=== PATIENT | female | born 1980 | race Caucasian/White ===

== ENCOUNTER 2016-09-03 18:20 | Observation (INO) | payer OTHER ==
[2016-09-03 18:39] LABS: URINE BILIRUBIN 1+ (NEGATIVE); URINE BLOOD Negative (NEGATIVE); URINE GLUCOSE (UA) Negative (NEGATIVE); URINE KETONE 1+ (NEGATIVE); URINE LEUK ESTERASE Negative (NEGATIVE); URINE NITRITE Negative (NEGATIVE); URINE UROBILINOGEN 1.0 E.U/dl (0.2-1.0)
[2016-09-03 18:40] LABS: URINE APPEARANCE CLOUDY; URINE COLOR YELLOW; URINE PROTEIN 1+ (NEGATIVE)
[2016-09-03 18:45] LABS: URINE BACTERIA FEW /hpf (NEGATIVE); URINE WBC 0-2 (3-5)
--- NOTE | 2016-09-03 19:19 | PDOC ---
History of Present Illness - General History Source: Patient, Spouse Exam Limitations: No Limitations - History of Present Illness Initial Comments: 09/03/16 19:37 The patient is a 36 year old female, with a significant past medical history of hypertension, who presents to the emergency department with intermittent abdominal pain for the past week. The patient reports subjective fevers, nausea and diarrhea over the same time period. The patient reports at least two episodes of diarrhea per day. The patient additionally reports a headache and sinus pressure. The patient denies chills, vomiting, constipation or dysuria. The patient denies any recent illnesses, antibiotics or any recent travel. The patients is at the bedside. PAST MEDICAL HISTORY: See HPI. PAST SURGICAL HISTORY: Tonsillectomy, Cholecystectomy, x 2, Tubal Ligation. FAMILY HISTORY: No pertinent history. SOCIAL HISTORY: Patient lives with family and is employed. MEDICATIONS: Reviewed. ALLERGIES: As per nursing notes. Adult ROS: General: +Fevers. No chills, no weakness, no weight loss. HEENT: +Sinus pressure. No change in vision. No sore throat. No ear pain. CardioVascular: No chest pain or shortness of breath. Respiratory: No cough, or wheezing. Gastrointestinal: +Abdominal pain, nausea, diarrhea. No vomiting or constipation , no rectal bleeding. Genitourinary: No dysuria, hematuria, or frequency. Musculoskeletal: No joint or muscle pain or swelling. Neurologic: +Headache. No vertigo, dizziness or loss of consciousness. Psychiatric: No depression. Skin: No rashes or easy bruising. Endocrine: No increased thirst or abnormal weight change. Allergic: No skin or latex allergy. All other systems reviewed and normal. Adult Physical Exam: General: Well-nourished, well-developed individual, uncomfortable appearing. HEENT: Tenderness on palpation of the frontal and maxillary sinuses bilaterally. Throat: Normal, tonsils normal, no erythema or exudate. Neck: Supple, no meningeal signs, no lymphadenopathy. Eyes: Pupils equal reactive and round, extraocular motion intact. Chest: Nontender to palpation. Cardiac: Mild tachycardia. S1-S2 normal, no murmurs rubs or gallops. Respiratory: Lungs clear to auscultation bilateral. Abdomen: Soft, nondistended. Decreased bowel sounds. Tenderness to palpation of the LLQ, no guarding, no rebound. Extremities: Warm, dry, no cyanosis, clubbing, or edema. Skin: No rashes. Neuro: Alert and oriented x3, nonfocal exam, grossly intact, normal gait. Psych: Normal mood and affect. <Tianna Huerta - Last Filed: 09/03/16 19:37> - General History Source: Patient Exam Limitations: No Limitations - History of Present Illness Initial Comments: 09/03/16 23:09 A portion of this note was documented by scribe services under my direction. I have reviewed the details of the note, within reason, and agree with the documentation. The case summary and management plan written by me. Assessment and plan: This is a 36-year-old female who comes in complaining of diarrhea 1 week. In addition to the diarrhea she complained of pain in the area of her frontal and maxillary sinuses times several days. Patient said she is also unable to tolerate by mouth secondary to every time she eats it precipitates diarrhea and abdominal pain and cramping. Patient on arrival was moderately dehydrated and was hydrated with IV normal saline initially and then switched to normal saline with potassium as her potassium came back at 2.8. Patient had an EKG that was negative for any ST T wave changes or any acute changes. It did show an old possible septal infarct otherwise was normal Patient had a CAT scan of her sinuses, that showed a pansinusitis of the frontal , maxillary and ethmoid sinuses Suspect that there is a chronic component to her acute sinusitis. Patient had a CAT scan of her abdomen and pelvis which showed no acute intra- abdominal pathology was negative for any diverticulitis, perforation ordered colitis. It did show a small probable ovarian cyst in the pelvis. Patient is unable to tolerate by mouth's at this time and needs potassium replacement. Patient will be admitted to an observation bed for potassium replacement, continued rehydration and monitoring. <Ambar Fernández I - Last Filed: 09/03/16 23:19> - General Chief Complaint: Diarrhea Stated Complaint: DIARRHEA X 1 WEEK Time Seen by Provider: 09/03/16 19:15 Past History <Tianna Huerta - Last Filed: 09/03/16 19:37> - Surgical History Cholecystectomy: Yes - Psycho/Social/Smoking Cessation Hx Anxiety: No Suicidal Ideation: No Smoking History: Never smoked Hx Alcohol Use: No Drug/Substance Use Hx: No Substance Use Type: None <Ambar Fernández I - Last Filed: 09/03/16 23:19> - Past Medical History Allergies/Adverse Reactions: Allergies Allergy/AdvReac Type Severity Reaction Status Date / Time No Known Allergies Allergy Verified 09/03/16 18:23 Home Medications: Ambulatory Orders Amlodipine Besylate 5 mg PO DAILY 09/03/16 Trazodone HCl 100 mg PO HS 09/03/16 *Physical Exam - Vital Signs Last Vital Signs Temp Pulse Resp BP Pulse Ox 98.9 F 106 H 15 152/115 98 09/03/16 18:21 09/03/16 18:21 09/03/16 18:21 09/03/16 18:21 09/03/16 18:21 <Tianna Huerta - Last Filed: 09/03/16 19:37> - Vital Signs Last Vital Signs Temp Pulse Resp BP Pulse Ox 98.9 F 106 H 15 152/115 98 09/03/16 18:21 09/03/16 18:21 09/03/16 18:21 09/03/16 18:21 09/03/16 18:21 <Ambar Fernández I - Last Filed: 09/03/16 23:19> ED Treatment Course - LABORATORY CBC & Chemistry Diagram: 09/03/16 18:56 09/03/16 18:56 - ADDITIONAL ORDERS Additional order review: Laboratory Results 09/03/16 18:35 Urine Color Yellow Urine Appearance Cloudy Urine pH 6.0 Ur Specific [place] 1.025 Urine Protein 1+ H Urine Glucose (UA) Negative Urine Ketones 1+ H Urine Blood Negative Urine Nitrite Negative Urine Bilirubin 1+ H Urine Urobilinogen 1.0 e.u/dl Ur Leukocyte Esterase Negative Urine RBC 2-3 Urine WBC 0-2 Ur Epithelial Cells Few Urine Bacteria Few Urine HCG, Qual Negative <Tianna Huerta - Last Filed: 09/03/16 19:37> - LABORATORY CBC & Chemistry Diagram: 09/03/16 18:56 09/03/16 18:56 - ADDITIONAL ORDERS Additional order review: Laboratory Results 09/03/16 18:35 Urine Color Yellow Urine Appearance Cloudy Urine pH 6.0 Ur Specific [place] 1.025 Urine Protein 1+ H Urine Glucose (UA) Negative Urine Ketones 1+ H Urine Blood Negative Urine Nitrite Negative Urine Bilirubin 1+ H Urine Urobilinogen 1.0 e.u/dl Ur Leukocyte Esterase Negative Urine RBC 2-3 Urine WBC 0-2 Ur Epithelial Cells Few Urine Bacteria Few Urine HCG, Qual Negative <Ambar Fernández I - Last Filed: 09/03/16 23:19> *DC/Admit/Observation/Transfer - Attestations Scribe Attestion: 09/03/16 19:20 Documentation prepared by Tianna Huerta, acting as medical center director for Ambar Fernández MD. <Tianna Huerta - Last Filed: 09/03/16 19:37> - Discharge Dispostion Admit: Yes <Ambar Fernández I - Last Filed: 09/03/16 23:19> Diagnosis at time of Disposition: Dehydration, Hypokalemia due to loss of potassium Diarrhea Qualifiers: Diarrhea type: unspecified type Qualified Code(s): R19.7 - Diarrhea, unspecified Abdominal pain Qualifiers: Abdominal location: generalized Qualified Code(s): R10.84 - Generalized abdominal pain Acute sinusitis Qualifiers: Sinusitis location: pansinusitis Recurrence: recurrent Qualified Code(s): J01.41 - Acute recurrent pansinusitis - Discharge Dispostion Condition at time of disposition: Good - Referrals Referrals: Pasquale Bueno MD [Primary Care Provider] -
[2016-09-03 19:20] LABS: BASOPHIL 0.6 % (0-2.0); EOSINOPHIL 0.5 % (0-4.5); MCH 26.9 pg (25.7-33.7); MCHC 33.6 g/dl (32.0-36.0); MEAN PLT VOLUME 8.9 fl (7.5-11.1); NEUTROPHILS 66.4 % (42.8-82.8); PLATELET COUNT 393 K/MM3 (134-434); RDW 13.6 % (11.6-15.6)
[2016-09-03] MEDS ORDERED: ONDANSETRON 4 MG/2 ML VIAL IVPB ONE (19:26)
[2016-09-03] MEDS ORDERED: SODIUM CHLORIDE 1,000 ML IV ONE (19:26)
[2016-09-03] MEDS ORDERED: morphine CARPU-JECT 4 MG/1 ML DISP.SYRIN IVPUSH ONE (19:26)
[2016-09-03 19:28] LABS: ALK PHOS 70 U/L (32-92); ANION GAP 9 (8-16); CO2 27 mmol/L (22-28); CREATININE 0.6 mg/dl (0.6-1.3); GLUCOSE,RANDOM 99 mg/dl (74-106); MAGNESIUM 1.8 mg/dL (1.8-2.4); SGOT/AST 24 U/L (10-42); SGPT/ALT 21 U/L (10-40); TOT PROT 7.4 g/dl (6.4-8.3)
[2016-09-03] MEDS ORDERED: ONDANSETRON 4 MG/2 ML VIAL ONE (19:34)
[2016-09-03] MEDS ORDERED: morphine CARPU-JECT 10 MG/1 ML DISP.SYRIN ONE (19:34)
[2016-09-03 19:36] LABS: BILIRUBIN,TOTAL 0.4 mg/dl (0.2-1.0)
[2016-09-03] MEDS ORDERED: FAMOTIDINE 20 MG/50 ML IVPB 50 ML IVPB ONE ×2 (20:05→20:06)
[2016-09-03] MEDS ORDERED: POTASSIUM CHLORIDE 20 MEQ in SODIUM CHLORIDE 1,000 ML IVPB SCH ×2 (20:15→23:45)
[2016-09-03] MEDS ORDERED: MAG HYDROX/AL HYDROX/SIMETH 30 ML UNIT-DOSE CUP PO ONE (22:39)
[2016-09-03] MEDS ORDERED: MAG HYDROX/AL HYDROX/SIMETH 30 ML UNIT-DOSE CUP ONE (22:40)
[2016-09-03] MEDS ORDERED: PIPERACILLIN/TAZOB 3.375 GM/50 ML PRE-DOCKED IVPB STA (23:00)
[2016-09-03] MEDS ORDERED: CEFTRIAXONE 1 GM in DEXTROSE 5%-WATER - 50 ML IVPB ONE (23:24)
[2016-09-03] MEDS ORDERED: cefTRIAXone SODIUM 1 GM VIAL ONE (23:32)
--- NOTE | 2016-09-04 00:06 | HP ---
CHIEF COMPLAINT: abdominal pain, diarrhea PCP: [facility] HISTORY OF PRESENT ILLNESS: This is a 36 year old female with a past medical history of hypertension, depression who presented with intermittent abdominal pain x 7 days associated with diarrhea. Initially the diarrhea was very frequent to the point that the pt felt she was unable to leave her bathroom but has slowly decreased in frequency. She reports currently having about 2 episodes per day. She has also had nausea and even drinking water causes her stomach to hurt. Upon exam, pt reports feeling better with decreased abdominal pain. She denies any further episodes of diarrhea. She also reports headache and sinus pressure for about one week. Pt denies any recent travel or antibiotic use. ER course was notable for: (1) Potassium 2.8 (2) CT abd pelvis no acute findings (3) CT sinuses: boyer sinusitis Recent Travel: pt denies PAST MEDICAL HISTORY: HTN depression PAST SURGICAL HISTORY: T&A cholecystectomy x 2 tubal ligation Social History: Smoking: pt denies Alcohol: occ, none in over 3 months Drugs: pt denies Family History: mother alive with HTN, DM, irreg heart beat father alive, no medical problems half sister with myasthenia gravis and HTN Allergies No Known Allergies Allergy (Verified 09/03/16 18:23) HOME MEDICATIONS: 3 Medication Instructions Recorded Amlodipine Besylate 5 mg PO DAILY 09/03/16 Trazodone HCl 100 mg PO HS 09/03/16 REVIEW OF SYSTEMS CONSTITUTIONAL: Absent: fever, chills, diaphoresis, generalized weakness, malaise, loss of appetite, weight change HEENT: Present: sinus pressure Absent: rhinorrhea, nasal congestion, throat pain, throat swelling, difficulty swallowing, mouth swelling, ear pain, eye pain, visual changes CARDIOVASCULAR: Absent: chest pain, syncope, palpitations, irregular heart rate, lightheadedness , peripheral edema RESPIRATORY: Absent: cough, shortness of breath, dyspnea with exertion, orthopnea, wheezing, stridor, hemoptysis GASTROINTESTINAL: Present: abdominal pain, nausea, diarrhea Absent: abdominal distension, vomiting, constipation, melena, hematochezia GENITOURINARY: Absent: dysuria, frequency, urgency, hesitancy, hematuria, flank pain, genital pain MUSCULOSKELETAL: Absent: myalgia, arthralgia, joint swelling, back pain, neck pain SKIN: Absent: rash, itching, pallor HEMATOLOGIC/IMMUNOLOGIC: Absent: easy bleeding, easy bruising, lymphadenopathy, frequent infections ENDOCRINE: Absent: unexplained weight gain, unexplained weight loss, heat intolerance, cold intolerance NEUROLOGIC: Present: headache Absent: focal weakness or paresthesias, dizziness, unsteady gait, seizure, mental status changes, bladder or bowel incontinence PSYCHIATRIC: Absent: anxiety, depression, suicidal or homicidal ideation, hallucinations. PHYSICAL EXAMINATION Vital Signs - 24 hr 3 09/04/16 00:05 Temperature 99.1 F Pulse Rate [ 86 Apical] Blood Pressure 132/90 [Left Arm] O2 Sat by Pulse 95 Oximetry (%) GENERAL: Awake, alert, and fully oriented, in no acute distress. HEAD: Normal with no signs of trauma. EYES: Pupils equal, round and reactive to light, extraocular movements intact, sclera anicteric, conjunctiva clear. No lid lag. EARS, NOSE, THROAT: Ears normal, nares patent, oropharynx clear without exudates. Moist mucous membranes. + pain with tapping over maxillary sinuses, minimal tenderness over frontal sinuses NECK: Normal range of motion, supple without lymphadenopathy, JVD, or masses. LUNGS: Breath sounds equal, clear to auscultation bilaterally. No wheezes, and no crackles. No accessory muscle use. HEART: Regular rate and rhythm, normal S1 and S2 without murmur, rub or gallop. ABDOMEN: Soft, nontender, not distended, normoactive bowel sounds, no guarding, no rebound, no masses. No hepatomegaly or splenomegaly. MUSCULOSKELETAL: Normal range of motion at all joints. No bony deformities or tenderness. No CVA tenderness. UPPER EXTREMITIES: 2+ pulses, warm, well-perfused. No cyanosis. No clubbing. No peripheral edema. LOWER EXTREMITIES: 2+ pulses, warm, well-perfused. No calf tenderness. No peripheral edema. NEUROLOGICAL: Cranial nerves II-XII intact. Normal speech. Normal gait. PSYCHIATRIC: Cooperative. Good eye contact. Appropriate mood and affect. SKIN: Warm, dry, normal turgor, no rashes or lesions noted, normal capillary refill. Laboratory Results - last 24 hr 3 09/03/16 09/03/16 09/03/16 09/03/16 18:35 18:56 18:56 21:14 WBC 7.0 RBC 5.28 H Hgb 14.2 D Hct 42.2 MCV 80.0 MCHC 33.6 RDW 13.6 Plt Count 393 MPV 8.9 Neutrophils % 66.4 Lymphocytes % 20.3 D Monocytes % 12.2 H D Eosinophils % 0.5 D Basophils % 0.6 Sodium 135 L Potassium 2.8 L* D Chloride 99 Carbon Dioxide 27 Anion Gap 9 BUN 8 Creatinine 0.6 Creat Clearance w eGFR > 60 Random Glucose 99 Lactic Acid 0.679 Calcium 9.0 Magnesium 1.8 Total Bilirubin 0.4 AST 24 ALT 21 D Alkaline Phosphatase 70 Total Protein 7.4 Albumin 4.0 Urine Color Yellow Urine Appearance Cloudy Urine pH 6.0 Ur Specific [place] 1.025 Urine Protein 1+ H Urine Glucose (UA) Negative Urine Ketones 1+ H Urine Blood Negative Urine Nitrite Negative Urine Bilirubin 1+ H Urine Urobilinogen 1.0 e.u/dl Ur Leukocyte Esterase Negative Urine RBC 2-3 Urine WBC 0-2 Ur Epithelial Cells Few Urine Bacteria Few Urine HCG, Qual Negative CT abd/pelvis: Visualized lung base appears unremarkable and the heart is within normal limits in size. Evaluation of the liver, spleen, pancreas, both adrenal glands and both kidneys appear unremarkable. Postcholecystectomy surgical metallic clips are present. Both kidneys are normally enhanced without evidence of hydronephrosis or stones, bilaterally. There is no evidence of small bowel obstruction or enlarged retroperitoneal lymph nodes. The terminal ileum and appendix appear unremarkable. Normal stool burden in the colon without wall thickening. No gross diverticula or evidence of colitis/ diverticulitis is identified. The uterus is within normal limits in size. There is an approximately 2.5 cm low-attenuation density in the left adnexa. Similar findings on the right compatible with ovaries/follicles. Partially distended urinary bladder without wall thickening. Perirectal and pericecal fat is clear. Visualized osseous structures appear intact with straightening of the lumbar spine Impression: Poor oral contrast opacification is limiting this exam. There is no oral contrast in the colon. There is no gross evidence of acute diverticulitis/ colitis. Small focal low-attenuation density in the right and left adnexa compatible with the ovaries with probable small follicles. No free air or free fluid in the abdomen and pelvis. CT scan of the paranasal sinuses without intravenous contrast. Coronal and sagittal reconstruction images were obtained. The sphenoid sinus and ethmoid air cells are essentially totally opacified. Partially opacified hypoplastic frontal sinus. Both maxillary antra are almost totally opacified with suggestion of an air-fluid level on the right. There is mild to moderate deviation of the nasal septum to the left. There is obstruction of the ostiomeatal unit, frontoethmoidal and sphenoethmoidal recess, bilaterally. Both orbits appear unremarkable. Included intracranial contents appear unremarkable. Included upper neck and airway appears unremarkable except for suggestion of partially included enlarged tonsils. Correlate clinically. Impression: Pansinusitis ASSESSMENT/PLAN: 36yF with PMH HTN, depression presented to the ED for abdominal pain with diarrhea and headache with sinus pressure. She was noted to be hypokalemic in ED. She is being admitted for observation. hypokalemia - likely due to diarrhea - given 20mEq KCl in 1L NS in ED - Now tolerating water PO, will give 40mEq po now and repeat labs in am. diarrhea - if any further episodes will send for stool studies Boyer sinusitis - ceftriaxone 1g in ED, cont same, convert to po upon DC, recommend outpatient ENT f/u DVT PPX - chemoprophylaxis deferred as anticipated LOS < 48h FEN - NS w/ 20mEq KCl @ 200cc/hr x 1 more liter - replete K, repeat in am - regular, lactose free diet in am Dispo: Pt currently requires inpatient observation of her emergent condition. Visit type - Emergency Visit Emergency Visit: Yes ED Registration Date: 09/03/16 Care time: The patient presented to the Emergency Department on the above date and was hospitalized for further evaluation of their emergent condition. - New Patient This patient is new to me today: Yes Date on this admission: 09/03/16 - Critical Care Critical Care patient: No
[2016-09-04] MEDS ORDERED: POTASSIUM CHLORIDE TABS 20 MEQ TABLET.ER (FP) PO ONE ×2 (00:30→09:00)
[2016-09-04] MEDS ORDERED: traZODone HCL 50 MG TABLET (FP) ONE (00:49)
[2016-09-04] MEDS: traZODone HCL 100 MG TABLET (FP) PO SCH ×2 (01:14→06:09)
[2016-09-04 01:59] VITALS: BMI 37.3
[2016-09-04 07:57] LABS: BASOPHIL 0.4 % (0-2.0); EOSINOPHIL 0.8 % (0-4.5); MCH 27.2 pg (25.7-33.7); MCHC 33.4 g/dl (32.0-36.0); MEAN CELL VOLUME 81.4 fl (80-96); MEAN PLT VOLUME 8.8 fl (7.5-11.1); NEUTROPHILS 64.7 % (42.8-82.8); PLATELET COUNT 285 K/MM3 (134-434); RDW 13.9 % (11.6-15.6); WHITE BLOOD COUNT 6.1 K/mm3 (4.0-10.0)
[2016-09-04 08:16] LABS: ANION GAP 7 (8-16); CALCIUM 8.1 mg/dl (8.4-10.2); CO2 26 mmol/L (22-28); CREATININE 0.6 mg/dl (0.6-1.3); GLUCOSE,RANDOM 95 mg/dl (74-106); MAGNESIUM 1.8 mg/dL (1.8-2.4)
[2016-09-04] MEDS: amLODIPine BESYLATE 5 MG TABLET (FP) PO SCH (10:21)
[2016-09-04] MEDS: DEXTROSE IVPB SCH ×2 (10:52→23:50)
[2016-09-04] MEDS: POTASSIUM CHLORIDE IVPB SCH ×2 (10:52→23:50)
[2016-09-04] MEDS: [UNRECOGNIZED DRUG - OTHER] IVPB SCH ×2 (10:52→23:50)
--- NOTE | 2016-09-04 12:27 | PN ---
Physical Exam: SUBJECTIVE: Patient seen and examined, patient reports ongoing abdominal cramping 4 episodes of loose stool since early this a.m. unable to tolerate soft diet OBJECTIVE: patient is a 36 year old female with a past medical history of hypertension and depression. patient was admitted from the emergency department for emergent condition Vital Signs Period Temp Pulse Resp BP Sys/Taylor Pulse Ox Last 24 Hr 98.1 F-99.1 F 84-94 18-19 132-147/77-94 94-95 GENERAL: The patient is awake, alert, and fully oriented, in no acute distress. HEAD: Normal with no signs of trauma. EYES: PERRL, extraocular movements intact, sclera anicteric, conjunctiva clear. No ptosis. ENT: Ears normal, nares patent, oropharynx clear without exudates, moist mucous membranes. NECK: Trachea midline, full range of motion, supple. LUNGS: Breath sounds equal, clear to auscultation bilaterally, no wheezes, no crackles, no accessory muscle use. HEART: Regular rate and rhythm, S1, S2 without murmur, rub or gallop. ABDOMEN: Soft, diffuse abdominal tenderness, nondistended, hyperactive bowel sounds, no guarding, no rebound, no hepatosplenomegaly, no masses. EXTREMITIES: 2+ pulses, warm, well-perfused, no edema. NEUROLOGICAL: Cranial nerves II through XII grossly intact. Normal speech, gait not observed. PSYCH: Normal mood, normal affect. SKIN: Warm, dry, normal turgor, no rashes or lesions noted Laboratory Results - last 24 hr 09/04/16 09/04/16 07:00 07:00 WBC 6.1 RBC 4.73 Hgb 12.8 Hct 38.5 MCV 81.4 MCHC 33.4 RDW 13.9 Plt Count 285 D MPV 8.8 Neutrophils % 64.7 Lymphocytes % 20.6 Monocytes % 13.5 H Eosinophils % 0.8 Basophils % 0.4 Sodium 138 Potassium 3.4 L D Chloride 105 Carbon Dioxide 26 Anion Gap 7 L BUN < 5 L D Creatinine 0.6 Random Glucose 95 Calcium 8.1 L Phosphorus 3.0 Magnesium 1.8 Active Medications Generic Name Dose Route Start Last Admin Trade Name Freq PRN Reason Stop Dose Admin Amlodipine Besylate 5 mg 09/04/16 10:00 09/04/16 10:21 Norvasc - PO 5 mg DAILY MARIA LUISA Administration Ceftriaxone Sodium 50 mls @ 100 mls/hr 09/04/16 22:00 Rocephin 1gm Ivpb (Pre-Docked) IVPB HS MARIA LUISA Potassium Chloride 40 meq/ 1,020 mls @ 75 mls/hr 09/04/16 10:30 09/04/16 10:52 Dextrose/Sodium Chloride IVPB 75 mls/hr Q13H MARIA LUISA Administration Trazodone HCl 100 mg 09/04/16 22:00 Desyrel - PO HS MARIA LUISA ASSESSMENT/PLAN: CT abd/pelvis: Visualized lung base appears unremarkable and the heart is within normal limits in size. Evaluation of the liver, spleen, pancreas, both adrenal glands and both kidneys appear unremarkable. Postcholecystectomy surgical metallic clips are present. Both kidneys are normally enhanced without evidence of hydronephrosis or stones, bilaterally. There is no evidence of small bowel obstruction or enlarged retroperitoneal lymph nodes. The terminal ileum and appendix appear unremarkable. Normal stool burden in the colon without wall thickening. No gross diverticula or evidence of colitis/ diverticulitis is identified. The uterus is within normal limits in size. There is an approximately 2.5 cm low-attenuation density in the left adnexa. Similar findings on the right compatible with ovaries/follicles. Partially distended urinary bladder without wall thickening. Perirectal and pericecal fat is clear. Visualized osseous structures appear intact with straightening of the lumbar spine Impression: Poor oral contrast opacification is limiting this exam. There is no oral contrast in the colon. There is no gross evidence of acute diverticulitis/ colitis. Small focal low-attenuation density in the right and left adnexa compatible with the ovaries with probable small follicles. No free air or free fluid in the abdomen and pelvis. CT scan of the paranasal sinuses without intravenous contrast. Coronal and sagittal reconstruction images were obtained. The sphenoid sinus and ethmoid air cells are essentially totally opacified. Partially opacified hypoplastic frontal sinus. Both maxillary antra are almost totally opacified with suggestion of an air-fluid level on the right. There is mild to moderate deviation of the nasal septum to the left. There is obstruction of the ostiomeatal unit, frontoethmoidal and sphenoethmoidal recess, bilaterally. Both orbits appear unremarkable. Included intracranial contents appear unremarkable. Included upper neck and airway appears unremarkable except for suggestion of partially included enlarged tonsils. Correlate clinically. Impression: Pansinusitis ASSESSMENT/PLAN: 1) GI: - she remains afebrile no leukocytosis, pending stool cultures - Start Bentyl - Appreciate GI input Dr. Ravi 2) ENT pansinusitis - Continue Rocephin, will need ENT follow-up as outpatient F/E/N -Hypokalemia, potassium 3.4, 40 mEq potassium ordered, change IV fluids to D5 1/ 2 NS with 40 mEq of potassium @ 75ml/hr - change diet to clear liquids advance as tolerated DVT PPX - chemoprophylaxis deferred as anticipated LOS < 48h Dispo: Pt currently requires inpatient observation of her emergent condition. Visit type - Emergency Visit Emergency Visit: Yes ED Registration Date: 09/04/16 Care time: The patient presented to the Emergency Department on the above date and was hospitalized for further evaluation of their emergent condition. - New Patient This patient is new to me today: Yes Date on this admission: 09/04/16 - Critical Care Critical Care patient: No - Discharge Referral Referred to [facility] Med [facility] Yes Physician Referral: Pasquale Bueno MD (Int Med)
[2016-09-04] MEDS ORDERED: DICYCLOMINE HCL 10 MG CAPSULE PO PRN (12:28)
--- NOTE | 2016-09-04 13:40 | EKG ---
Test Reason : Blood Pressure : / mmHG Vent. Rate : 098 BPM Atrial Rate : 098 BPM P-R Int : 154 ms QRS Dur : 082 ms QT Int : 316 ms P-R-T Axes : 035 053 -14 degrees QTc Int : 403 ms NORMAL SINUS RHYTHM SEPTAL INFARCT , AGE UNDETERMINED ABNORMAL ECG NO PREVIOUS ECGS AVAILABLE Confirmed by CARISA SOTO, KELLY ([id number]) on 09/04/2016 1:39:43 PM Referred By: GIGI MEANS Confirmed By:KELLY YOUNGER MD
[2016-09-04] MEDS: LACTOBACILLUS ACIDOPHILUS 1 EACH TAB (FP) PO SCH (14:17)
[2016-09-04] MEDS ORDERED: ACETAMINOPHEN 500 MG TABLET (FP) PO PRN (20:33)
[2016-09-04] MEDS ORDERED: CEFTRIAXONE 50 ML IVPB SCH (22:00)
[2016-09-04] MEDS ORDERED: traZODone HCL 50 MG TABLET (FP) PO SCH (22:00)
[2016-09-05 09:06] LABS: BASOPHIL 0.2 % (0-2.0); EOSINOPHIL 3.5 % (0-4.5); MCH 26.6 pg (25.7-33.7); MEAN CELL VOLUME 80.7 fl (80-96); MEAN PLT VOLUME 9.1 fl (7.5-11.1); NEUTROPHILS 57.8 % (42.8-82.8); PLATELET COUNT 348 K/MM3 (134-434); RDW 13.6 % (11.6-15.6); WHITE BLOOD COUNT 5.8 K/mm3 (4.0-10.0)
[2016-09-05 09:20] LABS: ALBUMIN 3.2 g/dl (3.5-5.0); ALK PHOS 78 U/L (32-92); ANION GAP 6 (8-16); BILIRUBIN,TOTAL 0.5 mg/dl (0.2-1.0); CALCIUM 8.7 mg/dl (8.4-10.2); CO2 26 mmol/L (22-28); CREATININE 0.5 mg/dl (0.6-1.3); GLUCOSE,RANDOM 109 mg/dl (74-106); MAGNESIUM 1.8 mg/dL (1.8-2.4); PHOSPHOROUS 2.7 mg/dl (2.5-4.6); SGOT/AST 37 U/L (10-42); SGPT/ALT 68 U/L (10-40); TOT PROT 6.5 g/dl (6.4-8.3)
[2016-09-05] MEDS: LACTOBACILLUS ACIDOPHILUS 1 EACH TAB (FP) PO SCH (09:57)
[2016-09-05] MEDS: amLODIPine BESYLATE 5 MG TABLET (FP) PO SCH (09:57)
--- NOTE | 2016-09-05 11:29 | DS ---
Physical Exam: SUBJECTIVE: Patient seen and examinedshe reports feeling well tolerating soft diet OBJECTIVE: patient is a 36 year old female with a past medical history of hypertension, depression who presented with intermittent abdominal pain x 7 days associated with diarrhea. Initially the diarrhea was very frequent to the point that the pt felt she was unable to leave her bathroom but has slowly decreased in frequency. She reports currently having about 2 episodes per day. She has also had nausea and even drinking water causes her stomach to hurt. Upon exam, pt reports feeling better with decreased abdominal pain. She denies any further episodes of diarrhea. She also reports headache and sinus pressure for about one week. Pt denies any recent travel or antibiotic use. ER course was notable for: (1) Potassium 2.8 (2) CT abd pelvis no acute findings (3) CT sinuses: boyer sinusitis Vital Signs Period Temp Pulse Resp BP Sys/Taylor Pulse Ox Last 24 Hr 97.5 F-99.1 F 69-103 18-18 111-140/71-85 95-99 PHYSICAL EXAM GENERAL: The patient is awake, alert, and fully oriented, in no acute distress. HEAD: Normal with no signs of trauma. EYES: PERRL, extraocular movements intact, sclera anicteric, conjunctiva clear. ENT: Ears normal, nares patent, oropharynx clear without exudates, moist mucous membranes. NECK: Trachea midline, full range of motion, supple. LUNGS: Breath sounds equal, clear to auscultation bilaterally, no wheezes, no crackles, no accessory muscle use. HEART: Regular rate and rhythm, S1, S2 without murmur, rub or gallop. ABDOMEN: Soft, nontender, nondistended, normoactive bowel sounds, no guarding, no rebound, no hepatosplenomegaly, no masses. EXTREMITIES: 2+ pulses, warm, well-perfused, no edema. NEUROLOGICAL: Cranial nerves II through XII grossly intact. Normal speech, gait not observed. PSYCH: Normal mood, normal affect. SKIN: Warm, dry, normal turgor, no rashes or lesions noted. LABS Laboratory Results - last 24 hr 09/05/16 09/05/16 07:00 07:00 WBC 5.8 RBC 5.22 H Hgb 13.9 Hct 42.1 MCV 80.7 MCHC 33.0 RDW 13.6 Plt Count 348 D MPV 9.1 Neutrophils % 57.8 Lymphocytes % 25.0 D Monocytes % 13.5 H Eosinophils % 3.5 D Basophils % 0.2 Sodium 133 L Potassium 3.9 Chloride 101 Carbon Dioxide 26 Anion Gap 6 L BUN 5 L Creatinine 0.5 L Creat Clearance w eGFR > 60 Random Glucose 109 H Calcium 8.7 Phosphorus 2.7 Magnesium 1.8 Total Bilirubin 0.5 D AST 37 D ALT 68 H D Alkaline Phosphatase 78 Total Protein 6.5 Albumin 3.2 L HOSPITAL COURSE: Date of Admission:09/04/16 Date of Discharge: 09/05/16 Minutes to complete discharge: 45 Discharge Summary Reason For Visit: DIARRHEA,DEHYDRATION,ABDOMINAL PAIN,ACUTE SINUSITI Current Active Problems Abdominal pain (Acute) Acute sinusitis (Acute) Dehydration (Acute) Diarrhea (Acute) Hypokalemia due to loss of potassium (Acute) Condition: Good - Instructions Referrals: Pasquale Bueno MD [Primary Care Provider] - - Home Medications Comprehensive Discharge Medication List: Ambulatory Orders RX: Amlodipine Besylate 5 mg PO DAILY 09/03/16 RX: Trazodone HCl 100 mg PO HS 09/03/16 - Discharge Referral Referred to [facility] Yes Physician Referral: Pasquale Bueno MD (Int Med)
[2016-09-05] MEDS: DEXTROSE IVPB SCH (11:37)
[2016-09-05] MEDS: [UNRECOGNIZED DRUG - OTHER] IVPB SCH (11:37)
[2016-09-05] MEDS: POTASSIUM CHLORIDE IVPB SCH (11:37)
[2016-09-05 15:12] VITALS: BP 131/72; PULSE 94; TEMP 98.7
--- NOTE | 2016-09-05 20:11 | PN ---
Progress Note (short form) - Note Progress Note: Patient is a 36 yo female seen in consult for recent abdominal pain and cramps. Feels better today and has normal WBC, no fever/chills and no diarrhea. Suspect resolving gastroenteritis ?viral. Patient is tolerating PO and has plans for discharge home later today; will followup in office as needed.
--- NOTE | 2016-09-06 12:10 | CONS ---
DATE OF CONSULTATION: 09/05/2016 Asked to evaluate this 36-year-old female admitted with a several-day history of abdominal pain, cramps and diarrhea. The patient has a history of hypertension and depression. She has no prior history of GI illness or enteritis. She presents with a 1-week history of abdominal pain and cramps, associated with some diarrhea. The patient was admitted to the hospital for further evaluation. Her blood tests on admission included a white count of 7.0, a hemoglobin of 14.2 with a hematocrit of 42.2. She had a serum potassium of 2.8 and a sodium of 135 with a BUN of 8 and a creatine of 0.6 although the chemistries were unremarkable. The patient had no fever or chills during the hospital stay, and her stool cultures were negative to date. The patient has received IV fluids during the hospital stay and has slowly improved with her diarrhea resolving and her abdominal pain improving significantly. Her repeat laboratory tests earlier today included normal electrolytes and a white count of 5.8 with a hemoglobin of 13.9, hematocrit of 42.1%. The patient has no prior history of colitis, enteritis or GI complaints. On exam, she is a well-developed, well-nourished female, sitting in bed eating breakfast, in no distress. She denies any nausea, vomiting, cramps or diarrhea. Her abdomen is soft, flat, nontender. There is no palpable mass or hepatosplenomegaly. A 36-year-old female with a several-day history of abdominal pain and cramps, which have resolved during the hospital stay. Has normal white count, no fever, and stool cultures negative. Suspect resolving viral gastroenteritis. Will follow clinically, and if stable, can be followed as an outpatient post discharge. ELLA BOOKER M.D. [id number]
== END 2016-09-05 17:05 | disposition home or self-care (01) ==
LOC: FER 18:20 → FM/S 23:50 → UNDOADMOB 23:50 → FM/S 09-04 00:06
PROVIDERS: ADMIT Internal Medicine; ATTEND Nurse Practitioner Family
DX: E86.0 Dehydration (principal); R19.7 Diarrhea, unspecified; E87.6 Hypokalemia; J01.90 Acute sinusitis, unspecified; R10.9 Unspecified abdominal pain; I10 Essential (primary) hypertension
CPT/HCPCS: 36415; 70486-TC; 74177-TC; 80048; 80053; 81003; 81015; 83605; 83735; 84100; 84703; 85025; 87045; 87046; 87177; 87207; 87209; 87324; 87328; 87329; 87449; 93005; 99285-25; G0378

== ENCOUNTER 2016-09-24 20:20 | Emergency (ER) | payer OTHER ==
[2016-09-24 20:29] VITALS: BP 153/109; PULSE 78; TEMP 97.9; BMI 37.8
--- NOTE | 2016-09-24 20:58 | PDOC ---
History of Present Illness <JefferybryanCucodelfinoAmbar pederson Yee - Last Filed: 09/24/16 21:02> - General History Source: Patient, Spouse, Old Records Exam Limitations: No Limitations - History of Present Illness Initial Comments: 09/24/16 21:10 The patient is a 36 year old female, with a significant past medical history of hypertension and depression, who presents to the emergency department for evaluation secondary to elevated blood pressure. The patient reports that she visited an urgent care earlier today with sore throat symptoms. She was diagnosed with strep throat and prescribed Amoxicillin. While at the urgent care , the patients blood pressure was read twice, with both readings recording the systolic number in the 170s. The patient was advised by the urgent care to visit the ED for further evaluation. Currently in the ED, the patient has no complaints. The patient's is at the bedside. PAST MEDICAL HISTORY: See HPI. PAST SURGICAL HISTORY: Tonsillectomy, Cholecystectomy, x 2, Tubal Ligation. FAMILY HISTORY: No pertinent history. SOCIAL HISTORY: Patient lives with family and is employed. MEDICATIONS: Reviewed. ALLERGIES: As per nursing notes. Adult ROS: General: No fevers or chills, no weakness, no weight loss. HEENT: No change in vision. No sore throat. No ear pain. Cardiovascular: +Hypertension. No chest pain or shortness of breath. Respiratory: No cough, or wheezing. Gastrointestinal: No nausea, vomiting, diarrhea or constipation, no rectal bleeding. Genitourinary: No dysuria, hematuria, or frequency. Musculoskeletal: No joint or muscle pain or swelling. Neurologic: No headache, vertigo, dizziness or loss of consciousness. Psychiatric: No depression. Skin: No rashes or easy bruising. Endocrine: No increased thirst or abnormal weight change. Allergic: No skin or latex allergy. All other systems reviewed and normal. Basic Physical Exam: GENERAL: The patient is awake, alert, and fully oriented, in no acute distress. HEAD: Normal with no signs of trauma. EYES: Pupils equal, round and reactive to light, extraocular movements intact, sclera anicteric, conjunctiva clear. EXTREMITIES: Normal range of motion, no edema. NEUROLOGICAL: Normal speech, normal gait. PSYCH: Normal mood, normal affect. SKIN: Warm, dry, normal turgor, no rashes or lesions noted. <Tianna Huerta - Last Filed: 09/24/16 21:10> - General Chief Complaint: Blood Pressure Problem Stated Complaint: HIGH BP Time Seen by Provider: 09/24/16 20:28 Past History - Past Medical History HTN: Yes Psychiatric Problems: Yes (DEPRESSION) - Surgical History Cholecystectomy: Yes - Psycho/Social/Smoking Cessation Hx Anxiety: No Suicidal Ideation: No Smoking History: Never smoked Information on smoking cessation initiated: No Hx Alcohol Use: (social) Drug/Substance Use Hx: No Substance Use Type: None <Ambar Fernández I - Last Filed: 09/24/16 21:02> <Tianna Huerta - Last Filed: 09/24/16 21:10> - Past Medical History Allergies/Adverse Reactions: Allergies Allergy/AdvReac Type Severity Reaction Status Date / Time No Known Allergies Allergy Verified 09/24/16 20:26 Home Medications: Ambulatory Orders Amlodipine Besylate 5 mg PO DAILY 09/03/16 Trazodone HCl 100 mg PO HS 09/03/16 *Physical Exam - Vital Signs Last Vital Signs Temp Pulse Resp BP Pulse Ox 97.9 F 78 18 153/109 99 09/24/16 20:20 09/24/16 20:20 09/24/16 20:20 09/24/16 20:20 09/24/16 20:20 <Ambar Fernández I - Last Filed: 09/24/16 21:02> - Vital Signs Last Vital Signs Temp Pulse Resp BP Pulse Ox 97.9 F 78 18 153/109 99 09/24/16 20:20 09/24/16 20:20 09/24/16 20:20 09/24/16 20:20 09/24/16 20:20 <Tianna Huerta - Last Filed: 09/24/16 21:10> *DC/Admit/Observation/Transfer - Discharge Dispostion Admit: No <Ambar Fernández I - Last Filed: 09/24/16 21:02> - Attestations Scribe Attestion: 09/24/16 20:59 Documentation prepared by Tianna Huerta, acting as medical imaging technician for Ambar Fernández MD. <Tianna Huerta - Last Filed: 09/24/16 21:10> Diagnosis at time of Disposition: Essential hypertension - Discharge Dispostion Disposition: HOME Condition at time of disposition: Stable - Patient Instructions Printed Discharge Instructions: How to Monitor Your Blood Pressure at Home Additional Instructions: Call Dr. Malik in the morning and discuss your blood pressure with him it is 153 /109 here in the emergency room. You may need to be restarted back on medication however that should be Dr. Malik's decision. There is nothing more you need to do for your blood pressure tonight go home relax and call Dr. Bueno in the morning. Return to the emergency department immediately with ANY new, persistent or worsening symptoms. Continue any medications as previously prescribed by your physician. You should follow up with your primary doctor as soon as possible regarding today's emergency department visit. . Please make sure your doctor reviews the results of your emergency evaluation. Thank you for coming to the Emergency Department today for your care. It was a pleasure to see you today. Please note that your evaluation is INCOMPLETE until you follow-up with your doctor.
== END 2016-09-24 21:09 | disposition home or self-care (01) ==
LOC: FER 20:20
DX: I10 Essential (primary) hypertension (principal); F32.9 Major depressive disorder, single episode, unspecified
CPT/HCPCS: 99282-25